=== PATIENT | male | born 1940 | race Caucasian/White ===

== ENCOUNTER → 2016-09-21 | Outpatient (CLI) | payer OTHER, BC | LOC: FIMAGING 11:42 | PROVIDERS: ATTEND Urology | DX: J90 Pleural effusion, not elsewhere classified (principal); N13.30 Unspecified hydronephrosis; N13.4 Hydroureter; N40.0 Benign prostatic hyperplasia without lower urinary tract symptoms; Z87.442 Personal history of urinary calculi ==

== ENCOUNTER → 2016-10-13 | Outpatient (CLI) | payer OTHER, BC | LOC: BMCIMAGING 10:53 | PROVIDERS: ATTEND Urology | DX: Z96.0 Presence of urogenital implants (principal); R93.41 Abnormal radiologic findings on diagnostic imaging of renal pelvis, ureter, or bladder ==

== ENCOUNTER 2016-10-30 23:22 | Emergency (ER) | payer OTHER, BC ==
[2016-10-30] MEDS ORDERED: LIDOCAINE 2% JELLY 20 ML (UROJECT) ONE (23:49)
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
[2016-10-31] MEDS ORDERED: CEPHALEXIN 500MG PREPACK#4 BTL TAKEHOME ONE (01:03)
[2016-10-31 01:48] VITALS: BP 126/58; PULSE 76; RESP 16; TEMP 99; O2SAT 92
== END 2016-10-31 01:14 | disposition home or self-care (01) ==
PROC: 0T9B70Z Drainage of Bladder with Drainage Device, Via Natural or Artificial Opening (ICD-10-PCS; principal; 2016-10-30)
DX: T83.091A Other mechanical complication of indwelling urethral catheter, initial encounter (principal); I10 Essential (primary) hypertension; E11.9 Type 2 diabetes mellitus without complications; I25.810 Atherosclerosis of coronary artery bypass graft(s) without angina pectoris; Z79.82 Long term (current) use of aspirin; Y82.8 Other medical devices associated with adverse incidents

== ENCOUNTER → 2018-10-27 | Outpatient (CLI) | payer OTHER, BC | LOC: FIMAGING 11:19 | PROVIDERS: ATTEND Internal Medicine | DX: N63.10 Unspecified lump in the right breast, unspecified quadrant (principal) ==